=== PATIENT | male | born 1995 | race Caucasian/White ===

== ENCOUNTER 2024-02-08 19:28 | Emergency (ER) | payer BC, MEDICAID ==
[~2024-02-08] VITALS: Ht 195.6 cm; Wt 100.1 kg
[2024-02-08 19:41] VITALS: BP 126/72; PULSE 95; TEMP 98.7; O2SAT 97
[2024-02-08] MEDS ORDERED: HYDR-3965 PO (21:58)
[2024-02-08] MEDS ORDERED: AMOX-117 PO (21:58)
[2024-02-08 22:12] VITALS: RESP 18
[2024-02-08] MEDS: ketorolac tromethamine 15mg/ml inj. IM STA (22:12)
== END 2024-02-08 22:18 | disposition home or self-care (01) ==
LOC: ER 19:29
DX: K08.89 Other specified disorders of teeth and supporting structures (principal); K04.7 Periapical abscess without sinus; K02.9 Dental caries, unspecified
CPT/HCPCS: 96372; 99283; J1885